=== PATIENT | female | born 1965 | race Two or more races ===

== ENCOUNTER 2023-02-25 00:04 | Emergency (ER) | payer MEDICAID, OTHER ==
[~2023-02-25] VITALS: Ht 167.6 cm; Wt 81.7 kg
[2023-02-25 00:14] VITALS: BP 160/87; PULSE 85; RESP 16; O2SAT 98
== END 2023-02-25 02:49 | disposition left against medical advice (07) ==
LOC: ER 00:04 → EDBD 00:04 → ER 02:49
DX: R51.9 Headache, unspecified (principal); M54.2 Cervicalgia; Z53.21 Procedure and treatment not carried out due to patient leaving prior to being seen by health care provider; V49.59XA Passenger injured in collision with other motor vehicles in traffic accident, initial encounter; Y93.89 Activity, other specified; Y92.410 Unspecified street and highway as the place of occurrence of the external cause; Y99.8 Other external cause status
CPT/HCPCS: 70450; 72125